=== PATIENT | male | born 1930 | race Caucasian/White ===

== ENCOUNTER → 2018-03-19 | Outpatient (REF) | payer MEDICARE ==
[~2018-03-19] MED LIST: CIP500 PO; DOC100 PO; FAM20 PO; LOR5/325 PO; MULT-1319 PO; PHENA200 PO
== END ==
LOC: ZZSENDIN 12:30
DX: N30.01 Acute cystitis with hematuria (principal); R82.79 Other abnormal findings on microbiological examination of urine
CPT/HCPCS: 81001; 87088

== ENCOUNTER → 2018-04-23 | Outpatient (CLI) | payer MEDICARE ==
[~2018-04-23] MED LIST changes: +IOPAMIDOL 76% 100 ML INFUS BTL 100 ML ONE; +NS(*) 0.9% 50 ML BAG 50 ML ONE
--- NOTE | 2018-04-23 14:50 | RADIOLOGY IMAGING REPORT ---
FACILITY: [facility] PATIENT NAME: Gene Denson : 1930 MR: [id number] V: [id number] EXAM DATE: ORDERING PHYSICIAN: JOYCE SCHMITT TECHNOLOGIST: [place] [facility] [place]: Gene Denson : 1930 Visit/Account:[id number] Date of Sevice: 04/23/2018 CT ABDOMEN PELVIS W & W/O CONTRAST HISTORY: Grossly chronic hematuria TECHNIQUE: Axial images acquired through the abdomen/pelvis both with and without IV contrast.. Onur nal and sagittal reformatting also performed.Dose Lowering Technique One of the following dose optimization techniques was utilized in the performance of this exam: Autom ated exposure control; adjustment of the mA and/or kV according to the patient's size; or use of an i terative reconstruction technique. Specific details can be referenced in the facility's radiology C T exam operational policy. CONTRAST: 125 mL Isovue-370 COMPARISON: December 13, 2010 FINDINGS: Visualized lung bases: There is scarring in the lung bases right greater than left and bilateral morenita cified pleural plaques Hepatobiliary: Negative. Spleen: Negative. Adrenals: Negative. Pancreas: Negative. Kidneys ureters and bladder: Multiple bilateral renal cysts again noted. There is a new 7 mm hyperat tenuating cortical mass posterior aspect upper pole of the left kidney that is indeterminate There is a 1.1 x 2 x 1.6 cm partially calcified mass in the posterior right-sided the bladder. There is an additional 3 x 0.8 x 2.6 cm partially calcified mass posterior left-sided the bladder just med ial to the left UVJ. There are bladder diverticula along the dome of the bladder. Bladder is modera tely distended The 2 mm nonobstructing calculus upper pole calyx of the right kidney Genitalia: Prostate gland is heterogeneous enlarged and impinges upon the floor the bladder GI: There is a small hiatal hernia. The appendix is visualized and does not appear inflamed there i s scattered diverticula throughout the colon although no CT evidence of acute diverticulitis Vessels/spaces/nodes: There extensive atherosclerotic calcifications throughout the abdominal aorta and branch vessels Bones/soft tissues: There is a levoconvex scoliosis of lumbar spine with extensive spondylotic estes es . Lucencies seen throughout the right iliac bone appears similar to the prior study may represent osteo penia Additional findings: None pertinent. IMPRESSION: There are partially calcified bladder masses as described above Bladder is moderately distended 2 mm nonobstructing calculus upper pole calyx of the right kidney There multiple bilateral renal cysts. There is a new 7 mm hyperattenuating cortical mass posterior a spect upper pole the left kidney that is indeterminate. This could represent a proteinaceous or hemo rrhagic cyst however further evaluation with MR with and without contrast may be helpful Prostate gland is heterogeneously enlarged and impinges upon the floor the bladder Small hiatal hernia Extensive atherosclerotic calcifications Additional chronic findings as described Scarring in the lung bases, right greater than left and bilateral calcified pleural plaques appear si milar to the prior study. Report Dictated By: Stefany Marie MD at 04/23/2018 1:33 PM Report E-Signed By: Stefany Marie MD at 04/23/2018 2:46 PM WSN:[id number]
== END ==
LOC: CT 11:57
DX: N20.0 Calculus of kidney (principal); N40.0 Benign prostatic hyperplasia without lower urinary tract symptoms
CPT/HCPCS: 74178; 85027; J7050; Q9967; 36415; 82310; 82374; 82435; 82565; 82947; 84132; 84295; 84520

== ENCOUNTER → 2018-04-30 | Outpatient (CLI) | payer MEDICARE ==
[~2018-04-30] MED LIST changes: +BRIM5DRO8 OP; +CHOL10005 PO; +CYAN250013 PO; -IOPAMIDOL 76% 100 ML INFUS BTL 100 ML ONE; +MULT-60 PO; -NS(*) 0.9% 50 ML BAG 50 ML ONE
--- NOTE | 2018-04-30 12:30 | EKG ---
FACILITY: [facility] - [place] PATIENT NAME: TREVON BRAR : [id number] MR: [id number] V: [id number] EXAM DATE: ORDERING PHYSICIAN: CECILE PALACIOS TECHNOLOGIST: TOBIAS Test Reason : HTN Blood Pressure : / mmHG Vent. Rate : 054 BPM Atrial Rate : 054 BPM P-R Int : 176 ms QRS Dur : 074 ms QT Int : 428 ms P-R-T Axes : 032 -35 026 degrees QTc Int : 405 ms Sinus bradycardia with premature atrial complexes Left axis deviation Inferior infarct , age undetermined No ST-T abnormalities No previous ECGs available Confirmed by JULIANA RICE ([id number]) on 04/30/2018 10:08:09 PM Referred By: PHILIP Confirmed By:JULIANA RICE
== END ==
LOC: CARD 11:38
PROVIDERS: ATTEND Physician Assistant Medical
DX: R00.1 Bradycardia, unspecified (principal)

== ENCOUNTER 2018-05-13 02:41 | Observation (INO) | payer MEDICARE ==
[~2018-05-13] VITALS: Ht 160 cm; Wt 69.4 kg
[2018-05-13] VITALS (20 sets, daily range): BP systolic 115–171; BP diastolic 62–95
[2018-05-13] MEDS: NORMOSOL R SOLN(*) 1000 ML BAG 1,000 ML IV PRN ×2 (05:48→07:11)
[2018-05-13] MEDS ORDERED: GENTAMICIN(*) 80 MG/2 ML VIAL 160 MG in NS(*) 0.9% 100 ML BAG 100 ML IVPB ONE (06:30)
[2018-05-13] MEDS ORDERED: LIDOCAINE/SOD BICARB 8.4% SYR ID ONE (06:30)
[2018-05-13] MEDS ORDERED: cefTRIAXone(*) 1 GM VIAL 1 GM in NS(*) 0.9% 100 ML ADDVANT BAG 100 ML IVPB ONE (06:30)
[2018-05-13] MEDS ORDERED: FAMOTIDINE 20 MG TAB PO ONE (06:30)
[2018-05-13] MEDS ORDERED: MIDAZOLAM 2 MG/2 ML VIAL IVP PRN (06:30)
[2018-05-13] MEDS ORDERED: BELLADONNA ALK/OPIUM 60MG SUPP PR ONE (07:27)
[2018-05-13] MEDS ORDERED: IOPAMIDOL-200 50 ML VIAL IS ONE (07:27)
[2018-05-13] MEDS ORDERED: MINERAL OIL LIGHT 10 ML VIAL ONE (08:19)
[2018-05-13] MEDS ORDERED: LABETALOL HCL 25 MG/5 ML SYRINGE ONE (10:14)
--- NOTE | 2018-05-13 11:38 | OPERATIVE REPORT 1 ---
EVENT DATE: May 13, 2018 SURGEON: Yeyo Mcgregor MD ANESTHESIOLOGIST: Yeyo Hunter MD ANESTHESIA: Spinal PREOPERATIVE DIAGNOSES 1. Hematuria, etiology ? 2. Bladder lesions, etiology ?, probable bladder tremors. 3. Vesicolithiasis. POSTOPERATIVE DIAGNOSES 1. Hematuria, etiology ? 2. Bladder lesions, etiology ?, probable bladder tumors. 3. Vesicolithiasis. PROCEDURES PERFORMED 1. Cystourethroscopy. 2. Vesicolitholopaxy of multiple bladder calculi, too numerous to count, largest being approximately 0.5 to 0.75 cm in its greatest diameter. DESCRIPTION OF PROCEDURE The 21-pandendoscope was introduced into the bladder. The bladder was scanned. Two lesions were identified in the bladder. The largest was located above and lateral to the left ureteral orifice, approximately 1.5 cm in its' greatest height, grossly papillary and inflammatory. The diameter was approximately 3 x 2 cm. The #2 lesion on the right lateral wall of the bladder was measured approximately 2 x 1 cm. This lesion was raised approximately 1.5 cm off the bladder wall and was located in the proximity of the obturator nerve. The remainder of the bladder appeared to be grossly free of any bladder tumors. Gross multiple diverticula 4+throughout the bladder.. The prostate showed evidence of previous resection and was still showed an open channel. Evidence of acute and chronic inflammation. The first lesion was TUR'd in his entirety and the specimen was sent as the bulk with the base of the lesion in #1 container. The #2 tumor was treated in like fashion and the bulk and the base were removed with the resection of the lesion. The bladder was drained as much as possible to minimize irritation of the obturator nerve. The lesions were treated separately and sent in separate containers, #1 and #2 lesions. Bleeding appeared to be satisfactorily controlled. The entire lesion was vaporized and fulgurated in its' entirety. The bladder appeared to be intact. There was some concern about possible thinning of muscle over the obturator nerve area lesion. The bladder was filled under gravity flow and drained freely and completely. There appeared to be no extravasation. The bladder was filled and the scope was withdrawn. The #20 three-way Marinelli was inserted through the urethra over catheter guidance and secured without any difficulty. The irrigation was clear at the conclusion of the procedure. Estimated blood loss less than 50 cc. Patient returned to the recovery room in satisfactory condition. The patient had good subarachnoid block anesthetic and was comfortable throughout the procedure without any sedation. Patient will be ready for discharge home in the a.m. if doing well. To force fluids 2L per day. Activities are restricted to careful ambulation. My clinical impression is to probably leave the catheter in possibly for a few days. PLAN Mitomycin C bladder treatment in the a.m. Patient will need periodic followup every three months to make sure the problem is resolved satisfactorily. Patient will be discharged home on Cipro, Pepcid, Pyridium, Motrin and Tylenol #3 therapy. MTDD
[2018-05-13] MEDS ORDERED: NS 0.9% 3000 ML IRRIGATION BAG 3,000 ML IR PRN (11:55)
[2018-05-13] MEDS: WATER FOR IRRIG,STERILE 3000ML 3,000 ML IR PRN ×2 (12:14→20:28)
[2018-05-13] MEDS ORDERED: GLYCOPYRROLATE 0.2MG/ML 1 ML INJ IVP PRN (12:15)
[2018-05-13] MEDS ORDERED: PROPANTHELINE BROMIDE 15MG TAB PO PRN (12:15)
[2018-05-13] MEDS ORDERED: LR(*) 1000 ML BAG 1,000 ML IV PRN (12:15)
[2018-05-13] MEDS ORDERED: ACETAMIN/CODEINE #3 300-30 MG PO PRN (12:15)
[2018-05-13] MEDS ORDERED: ONDANSETRON 4 MG/2 ML VIAL IVP PRN (12:15)
[2018-05-13] MEDS ORDERED: ZOLPIDEM TARTRATE 5 MG TAB PO PRN (12:15)
[2018-05-13] MEDS ORDERED: BELLADONNA ALKALOIDS/OPIUM 30 MG SUPP PR PRN (12:15)
[2018-05-13] MEDS ORDERED: FLUSH 10 ML SYR IVP PRN (12:15)
--- NOTE | 2018-05-13 13:23 | NUR ---
1100 VSS, DAYSI AT BEDSIDE, MADE ARRANGEMENTS TO TRANSFER PT BACK TO PRE-OP ROOM. 1110 1300ML EMPTIED FROM GARNER, LIGHT PINK, NEARLY CLEAR\ 1125 REC'D CALL FROM M/S ROOM WAS READY BEFORE BEIGN TRANSFERRED FROM PACU BACK TO PRE-OP ROOM
[2018-05-13] MEDS: GENTAMICIN/NS 80 MG/100 ML PB 100 ML IVPB SCH (19:54)
[2018-05-13] MEDS: DOCUSATE SODIUM 100 MG CAP PO SCH (21:36)
[2018-05-13] MEDS: FAMOTIDINE 20 MG TAB PO SCH (21:36)
[2018-05-14 02:38] VITALS: BP 136/83
[2018-05-14] MEDS: GENTAMICIN/NS 80 MG/100 ML PB 100 ML IVPB SCH (07:16)
[2018-05-14] MEDS ORDERED: cefTRIAXone 1 GM VIAL IVP SCH (07:30)
[2018-05-14 07:47] VITALS: BP 133/91
[2018-05-14 08:51] VITALS: Ht 160 cm; Wt 69.4 kg
[2018-05-14] MEDS: DOCUSATE SODIUM 100 MG CAP PO SCH (09:09)
[2018-05-14] MEDS: FAMOTIDINE 20 MG TAB PO SCH (09:09)
[2018-05-14] MEDS ORDERED: CIPR-344 PO (10:18)
[2018-05-14] MEDS ORDERED: ACET-3017 PO (10:24)
[2018-05-14] MEDS ORDERED: FAMO20TA28 PO (10:25)
[2018-05-14] MEDS ORDERED: PHEN200T32 PO (10:33)
[2018-05-14] MEDS ORDERED: IBUP-297 PO (10:38)
[2018-05-14 10:44] VITALS: BP 153/84
== END 2018-05-14 10:54 | disposition home or self-care (01) ==
LOC: OR 02:41 → MED 11:25
DX: N21.0 Calculus in bladder (principal); R31.9 Hematuria, unspecified
CPT/HCPCS: 52317; 88300; 88305; A4346; A9270; G0378; J0696; J1580; J2405; J7050; J7120; Q9966

== ENCOUNTER → 2018-05-17 | Outpatient (CLI) | payer MEDICARE ==
[2018-05-14 08:51] VITALS: BMI 27.1
[~2018-05-17] MED LIST changes: +ACET-3017 PO; +CIPR-344 PO; +FAMO20TA28 PO; +IBUP-297 PO; +PHEN200T32 PO; +mitoMYcin 20 MG VIAL 40 MG in WATER STERILE FOR INJ 50 ML VL 40 ML IR ONE
[2018-05-17 09:59] VITALS: BP 149/89
== END ==
LOC: SPU 08:54
DX: D49.4 Neoplasm of unspecified behavior of bladder (principal)

== ENCOUNTER 2018-07-12 10:14 | Outpatient (RCR) | payer MEDICARE ==
[2018-05-14 08:51] VITALS: Wt 71.6 kg
[2018-05-28 15:10] VITALS: BP 160/97
--- NOTE | 2018-05-29 03:32 | TOBIN CONSULT ---
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 Biopsy date 05/13/18. HISTORY This is a pleasant 88-year-old gentleman who is seen for initial consultation at the request of Dr. Mcgregor. The patient is a long-term resident of the [facility]. He presented to Dr. Mcgregor with urinary urgency and frequency. He was found to have microscopic hematuria. He was then seen back in Dr. Mcgregor's office a few weeks later, and hematuria was persistent on microscopic level, and the patient was advised that he should have a cystoscopy. The cystoscopy was performed on 05/13/18. The patient was found to have two lesions in the bladder. The largest lesion covered off the left ureteral orifice and measured 1.5 cm in height with papillary inflammatory characteristics. The diameter was listed as 3 cm x 2 cm. The second lesion was along the right lateral wall of the bladder and measured 2 cm x 1 cm. The lesion was raised off the bladder wall at 1.5 cm and was located in immediate proximity to the obturator nerve. The bladder had 4+ diverticula. Previous changes from prior TURP were noted, with an open channel; evidence of acute and chronic inflammation. Patient also underwent vesicolitholapaxy of multiple bladder calculi measuring 0.5 to 0.75 cm in greatest diameter. Final histopathology was notable for grade 2 transitional cell carcinoma with smooth muscle wall invasion. The patient had a CT scan of the abdomen and pelvis with and without contrast on 04/23/18. That study revealed thickening of the posterior wall of the bladder as well as partially calcified bladder masses noted in the bladder. One was 1.6 x 2 x 1.1 cm on the posterior right side of the bladder, and a second was a 3 x 0.8 x 2.6 cm partially calcified mass in the posterior left side of the bladder, medial to the left UVJ. Bladder diverticula are also noted along the dome of the bladder. There is an incidental nonobstructing calculus in the upper pole of the right kidney. The prostate gland was heterogeneously enlarged and impinged on the floor of the bladder. No gross lymphadenopathy noted. Patient has been doing reasonably well with moderate improvement in his urgency symptoms and nocturia after the initial procedure. This morning, the patient, unfortunately, experienced gross hematuria. He did see Dr. Mcgregor. He is drinking plenty of fluids and was able to void earlier this afternoon. Patient denies any pelvic pain or pressure. He does experience intermittent pain in his lower back and left hemipelvis of uncertain etiology. I briefly reviewed the CT bone windows, and he has moderately severe degenerative changes in the lumbar spine, which would be expected for his age. The patient wishes to discuss radiation therapy options today at the request of Dr. Mcgregor, and was seen for first meeting. MEDICATIONS 1. MVI. 2. Vitamin D3. 3. Vitamin B12. ALLERGIES None. PAST MEDICAL HISTORY 1. Transitional cell carcinoma of the bladder with history listed above. 2. History of glaucoma. PAST SURGICAL HISTORY 1. TURBT x2 on 05/13/18. 2. Prior TURP, 2008. SOCIAL HISTORY Patient is retired. Previously was an insurance marketing specialist. States he drinks two glasses of wine a day. Presently a nonsmoker. He did smoke one pack per day for 40 years, having quit in 1993. FAMILY HISTORY Negative for carcinoma. REVIEW OF SYSTEMS Comprehensive review of systems notable for hematuria, intermittent mild incontinence of urine, occasional urgency and nocturia, variable intensity and duration, intermittent lower back pain and left SI area pain. PHYSICAL EXAMINATION GENERAL: Pleasant 88-year-old male who appears slightly younger than his stated age. He is alert and conversant. VITAL SIGNS: BP 160/97, pulse 71, respirations 16, O2 saturation 92%. Weight 73.6 kg. LUNGS: Clear to auscultation bilaterally. HEART: Heart sounds regular. LYMPHATIC: No peripheral lymphadenopathy. ABDOMEN: Soft. No gross organomegaly. EXTREMITIES: No edema or cyanosis. NEURO: Grossly intact. IMPRESSION This is a very interesting case of an 88-year-old gentleman who presented to Dr. Mcgregor with microscopic hematuria, which has evolved to gross hematuria. He was found to have two significant lesions in the bladder adjacent to the left ureteral orifice as well as the right lateral bladder wall, in immediate proximity to the obturator nerve. Histopathology confirms smooth muscle invasion. The tumor is intermediate grade. Dr. Mcgregor has already reviewed therapeutic options with the patient and his spouse, which were well listed in his office notes (radical cystectomy, vaporization, mitomycin C, systemic therapy, and radiation therapy). At this juncture, the patient wished to discuss the details of the radiotherapy option with me, and the efficacy. I was able to find historical data from PubMed, which demonstrated that long- term tumor control was generally in the ballpark of 45%-50% from historic radiotherapy literature and institutional large trials. That would be specifically for a T2 lesion with muscle invasion. That said, in the last four years, there has been a considerable number of papers looking at hypofractionated radiation therapy regimens as well as dose intensification with integrated simultaneous boost. These studies demonstrate an improvement in tumor local control at the two-year interval into the 83% range. They predict long-term survival at five years at 60%-74%. The incidence of grade 3 RTOG toxicity is noted in 4% to 11% of patients with adaptive intensity modulated techniques, and at least in small trials, there has been no significant increase in gastrointestinal toxicity. I think that that speaks well of the treatment delivery techniques, which can now make the radiation therapy heavier in certain areas and significantly senior electrical engineer in other areas with computer-assisted dose- painting techniques, essentially. This patient appears to be a reasonable candidate for radiotherapy if he so desires. I told the patient that I would like an MRI scan of the pelvis, however, within the next 72 hours to ensure myself that he has no pelvic lymphadenopathy. I think the study would also better identify the recent tumor sites which were debulked by Dr. Mcgregor with muscle invasion. The study would also add further information relating to the patient's bone structure. I also discussed a PET/CT scan with the patient and family today; however, he is somewhat reluctant to travel outside of town, so we will hold on that study. I think I can effectively offer a treatment program without the PET scan as well. My mind may change, however, if the MRI scan is suspicious. The radiation therapy delivery protocol would tentatively be 45 Gy in 15 fractions, with or without an integrated boost to the two areas of muscle invasion. More to follow within a one-week time frame. Thank you for the referral and opportunity to discuss options with the patient today. [facility]
--- NOTE | 2018-05-31 11:34 | RADIOLOGY IMAGING REPORT ---
FACILITY: [facility] - [place] PATIENT NAME: Gene Denson : 1930 MR: [id number] V: [id number] EXAM DATE: ORDERING PHYSICIAN: JACKSON STOVER TECHNOLOGIST: Location[place] [facility] [place] Patient: Gene Denson : 1930 Visit/Account:[id number] Date of Sevice: 05/29/2018 EXAMINATION: MRI pelvis without MRI pelvis with IV contrast 05/29/2018 10:00 AM HISTORY: Bladder cancer post surgery. Staging. TECHNIQUE: Multiplanar multisequence imaging of the pelvis was done before and after intravenous cont rast. Contrast: 15 mL of IV MultiHance COMPARISON STUDIES: CT abdomen and pelvis without contrast 12/13/2010 FINDINGS: Bowel / mesenteries: Diverticulosis of the colon. No acute finding. Bladder and prostate: Trabeculated bladder gordon with diverticular formation, largest superiorly on t he right measuring 2.7 cm. No solid bladder wall mass evident. Prostate 4.9 x 4.4 x 4.7 cm with TURP defect. Bones: Levoscoliotic lumbar curvature. Vascular structures: negative. Other: Multiple bilateral renal cortical cysts, largest visualized on the left measuring 6.0 cm. Mild asymmetric prominence of the left ureter. LN assessment: 8 mm left pelvic sidewall lymph node. IMPRESSION: 1. Trabeculated bladder wall with multiple diverticuli. No bladder mass evident. 2. Nonspecific 8 mm left pelvic sidewall lymph node suspicious for possible metastasis although indet erminate. Report Dictated By: Jelani House MD at 05/29/2018 1:54 PM Report E-Signed By: Jelani House MD at 05/29/2018 2:06 PM WSN:[id number]
[2018-06-04 11:02] VITALS: BP 170/95
--- NOTE | 2018-06-04 17:18 | ONCOLOGY FOLLOW UP NOTE ---
EVENT DATE: June 04, 2018 CHIEF COMPLAINT/REASON FOR EVALUATION Recent diagnosis of muscle-invading transitional cell carcinoma of the bladder. Dr. Mcgregor removed two lesions on cystoscopy dated 05/13/18. Both lesions positive for grade 2 transitional cell carcinoma with invasion into smooth muscle wall, stage T2 N0 M0. INTERVAL HISTORY Mr. Denson was seen with his and son to go over treatment options for his bladder carcinoma. I discussed the case with Dr. Jimmy Mcgregor this morning for his description of the two lesions, which were removed with TURB resection. Patient had one episode of hematuria last week, but no hematuria in the last four to five days. He does void every 90 minutes to two hours during the day and gets up at baseline three to four times at night. The patient has noticed some trickling of the urine at times with altered sensation. He does recall being told by Dr. Mcgregor that one of the tumors was up against a nerve (obturator nerve). The largest lesion was in the left ureteral orifice measuring 1.5 cm in height x 3 cm x 2 cm. The second lesion was in the right lateral wall of the bladder, measured 2 x 1 cm with the tumor being raised 1.5 cm. That lesion on the right was in the immediate proximity to the obturator nerve. I requested an MRI scan of the pelvis this past week. I reviewed the study with the patient and his family. No signs of any tumor through the bladder wall, and no suspicious lymph nodes noted. MEDICATIONS 1. MVI. 2. Vitamin D3. 3. Vitamin B12. ALLERGIES None. PAST MEDICAL HISTORY 1. Transitional cell carcinoma of the bladder with history listed above. 2. History of glaucoma. PAST SURGICAL HISTORY 1. TURBT x2 on 05/13/18. 2. Prior TURP, 2008. SOCIAL HISTORY Patient is retired. Previously was an insurance and financial services agent. States he drinks two glasses of wine a day. Presently a nonsmoker. He did smoke one pack per day for 40 years, having quit in 1993. FAMILY HISTORY Negative for carcinoma. COMPREHENSIVE REVIEW OF SYSTEMS Notable for hematuria, intermittent mild incontinence of urine, occasional urgency and nocturia, variable intensity and duration, intermittent lower back pain, and left SI area pain. The patient does exercise daily and does 42 pushups a day on Sunday, Sunday, Sunday. PHYSICAL EXAMINATION GENERAL: Performance status 90 Karnofsky. VITAL SIGNS: BP 170/95, pulse 72, respirations 16, O2 sat 90% on room air. Weight 157.8. LUNGS: Clear bilaterally. HEART: Heart sounds regular. ABDOMEN: Soft, nontender. EXTREMITIES: No edema. NEUROLOGIC: Intact. IMPRESSION This is a pleasant 88-year-old gentleman with recently identified muscle- invading transitional cell carcinoma of the bladder. This was a grade 2 tumor which has been grossly debulked by Dr. Mcgregor. I suspect there are microscopic tumor cells now present in the muscle from the description. I went through the present NCCN guidelines. I also went through an excellent review article from 2015. This was a radiation therapy article for muscle- invading bladder cancer published in the [place] Journal [employer] Research on March 05, 2014. If patients are appropriately selected for radiation therapy protocols, the two-year cancer-free survival and local control is typically 85%. Patients who do best have a maximal transurethral resection prior to the radiotherapy program. Recent advances have allowed us to do dose intensification with volumetric modulated arc therapy (VMAT). PLAN My plan is to deliver 45 Gy in 15 fractions with field reduction with an additional 9 Gy in three fractions to a combined dose of 54 Gy in 18 treatments. I will be treating the specific sites where the tumor was involved. I will perform a CT simulation within the next 48 hours, and treatments will tentatively start on Sunday of next week. Signed consent was obtained for therapy after reviewing potential acute late side effects and therapeutic alternatives. We also discussed radiation/chemotherapy; however, the patient would like to proceed with radiation alone at this time. Dr. Mcgregor will followup with cystoscopy q 3-4 months after treatment for ongoing surveillance. [facility]
[2018-06-06 13:06] VITALS: BP 140/96
[2018-06-06 13:34] LABS: PLATELET COUNT, AUTOMATED 179 K/uL (150-450)
[~2018-07-12 10:14] MED LIST changes: +OXYB-13 PO; +TAMS0.4C25 PO; -mitoMYcin 20 MG VIAL 40 MG in WATER STERILE FOR INJ 50 ML VL 40 ML IR ONE
--- NOTE | 2018-07-14 23:50 | ONCOLOGY COMPLETION NOTE ---
EVENT DATE: July 12, 2018 DIAGNOSIS Grade 2 transitional cell carcinoma with invasion into smooth muscle wall on cystoscopy dated 05/13/18. Two lesions were identified. One lesion was resected off the left ureteral orifice at 1.5 cm in greatest height, diameter 3 cm x 2 cm. Second lesion was in the right lateral bladder, measured 2 x 1 cm and was raised 1.5 cm off the bladder wall. This was located most medial to the obturator nerve. Also present was 4+ diverticulum, vesicolithiasis. Following transurethral resection, patient was referred for radiotherapy considerations. DATE RADIATION THERAPY STARTED 06/11/18 DATE RADIATION THERAPY COMPLETED 07/12/18 DOSE AND TECHNIQUE 5400 cGy was delivered in 18 treatment fractions. The patient was treated with an IMRT approach. The first 15 fractions were treated at 300 cGy per fraction to a larger volume. Significant field reduction was then performed after rescanning the patient, and another 900 cGy delivered in 3 fractions, again with an IMRT treatment approach to minimize radiation dose to adjacent small bowel and critical structures. TOLERANCE Patient tolerated the radiation course reasonably well. He was experiencing significant frequency at the beginning of the radiation course. He was started on b.i.d. Flomax, which significantly helped his symptom complex. I also tried a small dose of Ditropan; however, he became lightheaded on Ditropan, and the medication was immediately discontinued. DISPOSITION The patient will return to the clinic in 12 weeks with CBC and CMP. I asked him to follow up with Dr. Mcgregor around that time and discuss the timing of followup cystoscopy. I told the patient that I think a combination of direct inspection and imaging with either CT or MRI scan could be helpful in following him going forward. Of the studies listed, a cystoscopy would be the most important. Overall, the patient was very pleased with how he was doing at this time. He has nocturia x4, which is close to baseline at this juncture. He continues his daily exercise program and remains mentally very sharp. Thank you for the referral and the opportunity to participate in the care of this patient. [facility]
== END 2018-08-25 ==
LOC: RAON 10:14
PROVIDERS: ATTEND Radiology Radiation Oncology
DX: Z51.0 Encounter for antineoplastic radiation therapy (principal); C67.8 Malignant neoplasm of overlapping sites of bladder; Z87.891 Personal history of nicotine dependence; M54.5 Low back pain; R53.83 Other fatigue; R31.9 Hematuria, unspecified
CPT/HCPCS: 36415; 77280; 77290; 77300; 77301; 77336; 77338; 77386; 81001; 85025; G0463; J7050; 72197; 82040; 82247; 82310; 82374; 82435; 82565; 82947; 84075; 84132; 84155; 84295; 84450; 84460; 84520; 99202; 99212; A9577